=== PATIENT | male | born 1950 | race Caucasian/White ===

== ENCOUNTER 2016-08-23 02:27 | Emergency (ER) | payer BC ==
[2016-08-23] MEDS ORDERED: Nitroglycerin TAB 0.4 MG* 0.4 MG TAB SL PRN (02:40)
[2016-08-23] MEDS ORDERED: Aspirin Low Dose CHEW TAB* 81 MG PO ONE (02:40)
[2016-08-23] MEDS ORDERED: Nitroglycerin TAB 0.4 MG* 0.4 MG TAB ONE (02:59)
[2016-08-23] MEDS ORDERED: Piperac/Tazob 3.375 gm in NS* 3.375 GM/100 ML BAG IVPB ONE (03:11)
[2016-08-23] MEDS ORDERED: Vancomycin(*) 1,000 MG in NS 0.9% 250 ML* 250 ML IVPB ONE (03:11)
[2016-08-23 03:14] LABS: Hematocrit 44 % (42-52); Hemoglobin 14.8 g/dl (14.0-18.0); Mean Corpuscular HGB Conc 34 g/dl (31-36); Mean Corpuscular Hemoglobin 30 pg (27-31); Mean Corpuscular Volume 88 fL (80-94); Mean Platelet Volume 8 um3 (7.4-10.4); Red Blood Count 4.96 10^6/ul (4.0-5.4); Red Cell Distribution Width 13 % (10.5-15); White Blood Count 6.1 10^3/ul (3.5-10.8)
[2016-08-23 03:23] LABS: BUN/Creatinine Ratio 26.4 (8-20); Calcium 9.1 mg/dL (8.6-10.3); EGFR African American 140.9 (>60); EGFR Non-African American 109.6 (>60); Magnesium 2.1 mg/dL (1.9-2.7); Total Bilirubin 0.4 mg/dL (0.2-1.0)
--- NOTE | 2016-08-23 06:30 | ED ---
Mohinder Damon SooYoung, scribed for Jonathan Hahn MD on 08/23/16 at 0244 . HPI Chest Pain - HPI Summary HPI Summary: A 66 y/o M presents to ED with c/o acute CP onset approx 0200 while pt was asleep. Pt took one nitro. Pain described as pressure. Pt rated pain at onset as 8 out of 10, and down to 3 out of [address] 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 PMHx: quadruple bypass in 2006, partial lung collapse 3x. - History of Current Complaint Chief Complaint: EDChestPainROMI Time Seen by Provider: 08/23/16 02:34 Hx Obtained From: Patient, Medical Records Onset/Duration: Started Hours Ago, Still Present Timing: Constant Initial Severity: Severe - rated as 8 out of 10 Current Severity: Mild Pain Intensity: 3 Pain Scale Used: 0-10 Numeric Chest Pain Radiates: Yes Chest Pain Radiates To:: Arm - L Character: Pressure/Squeezing - Allergy/Home Medications Allergies/Adverse Reactions: Allergies Allergy/AdvReac Type Severity Reaction Status Date / Time Morphine AdvReac Intermediate Altered Verified 05/08/16 10:52 Mental Status PMH/Surg Hx/FS Hx/Imm Hx Previously Healthy: No Endocrine/Hematology History: Denies: Hx Diabetes Cardiovascular History: Reports: Hx Angina, Hx Coronary Artery Disease, Hx Hypercholesterolemia, Hx Hypertension, Hx Myocardial Infarction Denies: Hx Pacemaker/ICD, Hx Valvular Heart Disease Respiratory History: Reports: Hx Asthma, Other Respiratory Problems/Disorders - ALLERGIES Denies: Hx Chronic Obstructive Pulmonary Disease (COPD) History: Denies: Hx Renal Disease Sensory History: Denies: Hx Hearing Aid Psychiatric History: Denies: Hx Panic Disorder - Surgical History Surgery Procedure, Year, and Place: 3 PARTIAL LUNG COLLAPSE SURGERY. QUADRUPLE BYPASS Infectious Disease History: Denies: Traveled Outside the [place] in Last 30 Days - Family History Known Family History: Positive: Cardiac Disease - Social History Occupation: Employed Full-time Lives: With Family Alcohol Use: Weekly Alcohol Amount: 3/wk Hx Substance Use: No Substance Use Type: Reports: None Hx Tobacco Use: Yes Smoking Status (MU): Former Smoker Type: Cigarettes Have You Smoked in the Last Year: No Review of Systems Negative: Fever Positive: Chest Pain All Other Systems Reviewed And Are Negative: Yes Physical Exam Triage Information Reviewed: Yes Vital Signs On Initial Exam: Initial Vitals Temp Pulse Resp BP Pulse Ox 97.5 F 92 18 155/84 97 08/23/16 02:32 08/23/16 02:32 08/23/16 02:32 08/23/16 02:32 08/23/16 02:32 Vital Signs Reviewed: Yes Appearance: Positive: Well-Appearing, No Pain Distress Skin: Positive: Warm Head/Face: Positive: Normal Head/Face Inspection Eyes: Positive: NIRU ENT: Positive: Hearing grossly normal Dental: Positive: Gross Decay/Caries @ Neck: Positive: Supple Respiratory/Lung Sounds: Positive: Clear to Auscultation, Breath Sounds Present Cardiovascular: Positive: RRR Abdomen Description: Positive: Nontender, Soft Bowel Sounds: Positive: Present Musculoskeletal: Positive: Strength/ROM Intact Neurological: Positive: Sensory/Motor Intact, Alert, Oriented to Person Place, Time Psychiatric: Positive: Affect/Mood Appropriate Diagnostics - Vital Signs Vital Signs Temp Pulse Resp BP Pulse Ox 08/23/16 02:32 97.5 F 92 18 155/84 97 - Laboratory Lab Results: Lab Results 08/23/16 08/23/16 08/23/16 Range/Units 02:55 02:55 02:55 WBC 6.1 (3.5-10.8) 10^3/ul RBC 4.96 (4.0-5.4) 10^6/ul Hgb 14.8 (14.0-18.0) g/dl Hct 44 (42-52) % MCV 88 (80-94) fL MCH 30 (27-31) pg MCHC 34 (31-36) g/dl RDW 13 (10.5-15) % Plt Count 227 (150-450) 10^3/ul MPV 8 (7.4-10.4) um3 Neut % (Auto) 45.9 (38-83) % Lymph % (Auto) 39.4 (25-47) % Mayes % (Auto) 9.4 H (1-9) % Eos % (Auto) 4.1 (0-6) % Baso % (Auto) 1.2 (0-2) % Absolute Neuts (auto) 2.8 (1.5-7.7) 10^3/ul Absolute Lymphs (auto) 2.4 (1.0-4.8) 10^3/ul Absolute Monos (auto) 0.6 (0-0.8) 10^3/ul Absolute Eos (auto) 0.3 (0-0.6) 10^3/ul Absolute Basos (auto) 0.1 (0-0.2) 10^3/ul Absolute Nucleated RBC 0 10^3/ul Nucleated RBC % 0.1 Sodium 133 (133-145) mmol/L Potassium 4.0 (3.5-5.0) mmol/L Chloride 100 L (101-111) mmol/L Carbon Dioxide 25 (22-32) mmol/L Anion Gap 8 (2-11) mmol/L BUN 19 (6-24) mg/dL Creatinine 0.72 (0.67-1.17) mg/dL Est GFR ( Amer) 140.9 (>60) Est GFR (Non-Af Amer) 109.6 (>60) BUN/Creatinine Ratio 26.4 H (8-20) Glucose 118 H (70-100) mg/dL Lactic Acid 1.7 (0.5-2.0) mmol/L Calcium 9.1 (8.6-10.3) mg/dL Magnesium 2.1 (1.9-2.7) mg/dL Total Bilirubin 0.40 (0.2-1.0) mg/dL AST 33 (13-39) U/L ALT 45 (7-52) U/L Alkaline Phosphatase 72 (34-104) U/L Troponin I 0.00 (<0.04) ng/mL Total Protein 7.0 (6.4-8.9) g/dL Albumin 4.0 (3.2-5.2) g/dL Globulin 3.0 (2-4) g/dL Albumin/Globulin Ratio 1.3 (1-3) 08/23/16 Range/Units 05:55 WBC (3.5-10.8) 10^3/ul RBC (4.0-5.4) 10^6/ul Hgb (14.0-18.0) g/dl Hct (42-52) % MCV (80-94) fL MCH (27-31) pg MCHC (31-36) g/dl RDW (10.5-15) % Plt Count (150-450) 10^3/ul MPV (7.4-10.4) um3 Neut % (Auto) (38-83) % Lymph % (Auto) (25-47) % Mayes % (Auto) (1-9) % Eos % (Auto) (0-6) % Baso % (Auto) (0-2) % Absolute Neuts (auto) (1.5-7.7) 10^3/ul Absolute Lymphs (auto) (1.0-4.8) 10^3/ul Absolute Monos (auto) (0-0.8) 10^3/ul Absolute Eos (auto) (0-0.6) 10^3/ul Absolute Basos (auto) (0-0.2) 10^3/ul Absolute Nucleated RBC 10^3/ul Nucleated RBC % Sodium (133-145) mmol/L Potassium (3.5-5.0) mmol/L Chloride (101-111) mmol/L Carbon Dioxide (22-32) mmol/L Anion Gap (2-11) mmol/L BUN (6-24) mg/dL Creatinine (0.67-1.17) mg/dL Est GFR ( Amer) (>60) Est GFR (Non-Af Amer) (>60) BUN/Creatinine Ratio (8-20) Glucose (70-100) mg/dL Lactic Acid (0.5-2.0) mmol/L Calcium (8.6-10.3) mg/dL Magnesium (1.9-2.7) mg/dL Total Bilirubin (0.2-1.0) mg/dL AST (13-39) U/L ALT (7-52) U/L Alkaline Phosphatase (34-104) U/L Troponin I 0.01 (<0.04) ng/mL Total Protein (6.4-8.9) g/dL Albumin (3.2-5.2) g/dL Globulin (2-4) g/dL Albumin/Globulin Ratio (1-3) Result Diagrams: 08/23/16 02:55 08/23/16 02:55 Lab Statement: Any lab studies that have been ordered have been reviewed, and results considered in the medical decision making process. - Radiology CXR Xray Interpretation: No Acute Changes Radiology Interpretation Completed By: ED Physician - EKG 1 EKG Rhythm: Sinus Rhythm EKG Interpretation: incomplete left bundle Re-Evaluation - Re-Evaluation First Eval Change: Improved - pain free, results d/w pt Chest Pain Course/Dx - Course Assessment/Plan: Pt is a 66 y/o M with sudden, acute CP onset 0200, waking pt from sleep. 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 Rated initial pain as 8 out of 10, has subsided to 3 out of 10 upon arrival. Pt given Nitro, aspirin, Vancomycin, Zosyn in ED. EKG is sinus rhythm with incomplete left bundle. Trop at 0255 is 0.00. CXR is normal. Trop at 0555 is 0.01. Will D/C pt home without meds. - Diagnoses Provider Diagnoses: Chest pain Discharge - Discharge Plan Condition: Stable Disposition: HOME Patient Education Materials: Chest Pain (ED) Referrals: Emily Medellin MD [Primary Care Provider] - Additional Instructions: Follow up with your primary care physician. Please return to the ED if you experience new or worsening symptoms. The documentation as recorded by the Mohinder cuello SooYoung accurately reflects the service I personally performed and the decisions made by me, Jonathan Hahn MD.
[2016-08-23 07:03] VITALS: BP 121/74
--- NOTE | 2016-08-23 07:47 | RAD ---
INDICATION: Chest pain COMPARISON: March 06, 2016 TECHNIQUE: PA and lateral dual-energy views were obtained. FINDINGS: Bones/Soft Tissues: There are no acute bony findings. There is prior CABG Cardiomediastinal: The cardiomediastinal silhouette is normal. Lungs: There are no infiltrates. There is mild hyperinflation. Pleura: There are no pleural effusions. There is mild biapical scarring. Other: None IMPRESSION: POSTOPERATIVE CHANGES. HYPERINFLATION. NO ACTIVE DISEASE.
== END 2016-08-23 07:04 | disposition home or self-care (01) ==
LOC: ED 02:27
DX: R07.9 Chest pain, unspecified (principal); Z87.891 Personal history of nicotine dependence
CPT/HCPCS: 36415; 71020; 80053; 83605; 83735; 84484; 85025; 93005; 99283; A9270-GY

== ENCOUNTER 2016-09-09 09:54 | Observation (INO) | payer BC ==
[2016-09-09] MEDS ORDERED: Aspirin Low Dose CHEW TAB* 81 MG PO ONE (10:03)
[2016-09-09] MEDS ORDERED: NS 0.9% 1000 ML* 1,000 ML IV ONE (10:03)
[2016-09-09] MEDS ORDERED: Ondansetron INJ* 2 MG/ML VIAL ONE (10:04)
[2016-09-09] MEDS ORDERED: Ondansetron INJ* 2 MG/ML VIAL IV ONE ×2 (10:06→10:07)
[2016-09-09 10:31] LABS: Hematocrit 45 % (42-52); Mean Corpuscular HGB Conc 33 g/dl (31-36); Mean Corpuscular Hemoglobin 29 pg (27-31); Mean Corpuscular Volume 89 fL (80-94); Mean Platelet Volume 8 um3 (7.4-10.4); Red Blood Count 5.09 10^6/ul (4.0-5.4); Red Cell Distribution Width 13 % (10.5-15); White Blood Count 6.8 10^3/ul (3.5-10.8)
--- NOTE | 2016-09-09 10:42 | RAD ---
Indication: Syncope. Single frontal view of the chest performed at 1010 hours was reviewed. Comparison is made with previous exam dated August 23, 2016. No mediastinal shift is noted. Heart is of normal size and configuration. Lung green appear clear. Patient is status post transsternal thoracotomy. Lung green appear hyperinflated. Right apical scarring is noted. IMPRESSION: NO ACTIVE CARDIOPULMONARY DISEASE IS NOTED.
[2016-09-09 10:46] LABS: Albumin 4.1 g/dL (3.2-5.2); BUN/Creatinine Ratio 21.3 (8-20); EGFR African American 134.4 (>60); EGFR Non-African American 104.5 (>60); Globulin 3.1 g/dL (2-4); Magnesium 2.1 mg/dL (1.9-2.7); Potassium 4.1 mmol/L (3.5-5.0); Total Bilirubin 0.5 mg/dL (0.2-1.0); Total Protein 7.2 g/dL (6.4-8.9)
[2016-09-09 11:37] LABS: TSH (Thyroid Stimulating Horm) 0.1 mcIU/mL (0.34-5.60)
[2016-09-09] MEDS ORDERED: Iohexol 350* (CONTRAST) 500 ML MDV IV ONE (12:01)
--- NOTE | 2016-09-09 12:58 | RAD ---
Indication: Vertigo. CT of the brain was performed without IV contrast. Ventricular structures are midline. No midline shift is noted. The extraction spaces are unremarkable. There is no evidence of intracranial mass or hemorrhage. No other high or low density lesions are identified. Mastoid air cells and paranasal sinuses demonstrates mucosal thickening of the ethmoid air cells and right maxillary sinus and left maxillary sinus. IMPRESSION: No intracranial mass or hemorrhage is identified. Mucosal thickening right maxillary sinus and ethmoid air cells.
--- NOTE | 2016-09-09 13:04 | RAD ---
Indication: Vertigo. Contrast: Administered 79.8 ml of OMNIPAQUE 350 mgi/ml CTA of the neck and head was performed after IV contrast administration. Coronal and sagittal reconstructed images were obtained. The origins of the great vessels demonstrates a common origin of the innominate artery and left common carotid artery. The common carotid arteries otherwise are normal bilaterally. Minimal calcific plaque is noted at the origins of both internal carotid arteries likely a less than 50%. No evidence of carotid artery dissection is noted. The vertebral arteries are normal in caliber. No evidence of vertebral artery dissection is noted. The intracranial vessels demonstrates intracranial carotid arteries demonstrates atherosclerosis. Anterior and middle cerebral arteries are unremarkable. No a residual dilatation or branch occlusion is noted. The branches of the middle cerebral artery are grossly unremarkable. The basilar artery and posterior cerebral arteries are unremarkable. No aneurysmal dilatation is noted. The orbits are otherwise unremarkable. Soft tissue of the neck demonstrates normal parotid glands and salivary glands with scattered lymph nodes. The inferior thyroid lobes are unremarkable. The lung apices are unremarkable. IMPRESSION: CTA OF THE NECK DEMONSTRATES MINIMAL CALCIFIC PLAQUE AT THE ORIGINS OF BOTH INTERNAL CAROTID ARTERIES. CTA OF THE HEAD DEMONSTRATES NO BRANCH OCCLUSION OR ANEURYSMAL DILATATION OF THE [place]. NO EVIDENCE OF VERTEBRAL ARTERY OR CAROTID ARTERY DISSECTION IS NOTED.
[2016-09-09] MEDS ORDERED: Albuterol HFA INHALER* 8 gm MDI INH PRN (13:14)
[2016-09-09] MEDS: Enoxaparin(*) 40 MG/0.4 ML SYR SUBCUT SCH (14:01)
[2016-09-09] MEDS: Meclizine TAB* 12.5 MG PO SCH ×2 (14:02→22:11)
[2016-09-09] MEDS: Ondansetron INJ* 2 MG/ML VIAL IV SCH ×3 (14:03→22:11)
[2016-09-09] MEDS: Ascorbic Acid TAB* 500 MG PO SCH (14:03)
[2016-09-09] MEDS: Clopidogrel TAB* 75 MG PO SCH (14:03)
[2016-09-09] MEDS: Metoprolol Succinate XL TAB* 25 MG PO SCH (14:03)
[2016-09-09] MEDS ORDERED: Cholecalciferol TAB* 1000 UNITS PO SCH (18:00)
[2016-09-09] MEDS ORDERED: Atorvastatin* 40 MG TAB PO SCH (18:00)
[2016-09-09] MEDS: Mometasone/Formoter 100/5 MDI INH SCH (20:02)
--- NOTE | 2016-09-09 22:37 | HP ---
HISTORY AND PHYSICAL: DATE OF ADMISSION: 09/09/16 PRIMARY CARE PHYSICIAN: Emily Medellin MD CHIEF COMPLAINT: Dizziness. HISTORY OF PRESENT ILLNESS: Mr. Cage is a 66-year-old male with a past medical history of hypertension, hyperlipidemia, peripheral artery disease, COPD , CAD, status post CABG, and hypothyroidism, who presents to the hospital with an episode of dizziness and nausea this morning. The patient states he was in his usual state of health and has been doing well since a recent right lower extremity balloon angioplasty by IR on 09/07/16. This morning he was sitting on the side of his bed, working on a stencil sign, he laid back on his bed to stretch and then when he sat up he states everything started "swirling." He stated it looked like the room was spinning. He suddenly became nauseous and clammy and had an episode of vomiting. Shortly after this, he ran to the bathroom to have a bowel movement, yelled for his who called 911. The patient states the symptoms resolved after 2 to 3 minutes. He denies any preceding chest pain or shortness of breath. Denies headache. Did not loose consciousness. He has had no history of this in the past. He states he has had good p.o. intake lately. Denies any fevers, chills, URI symptoms or abdominal pain. He has not had any foot pain, swelling or bruising. No diarrhea, constipation, dysuria, melena, hematuria or hematochezia. Denies any focal weakness. Here in the emergency department, he again was laying down and when he was sat up, he felt lightheaded. As per his , he did not lose consciousness. He was a bit disoriented, but states this episode was different from the room spinning sensation he was feeling at home. Due to these symptoms , hospitalist service was called to consider the patient for admission to the hospital. PAST MEDICAL HISTORY: Hypertension, hyperlipidemia, peripheral artery disease, COPD, CAD, status post CABG, and hypothyroidism. PAST SURGICAL HISTORY: Quadruple bypass 2008, recent balloon angioplasty, history of chest tubes and what sounds like possible VATS. ALLERGY: To MORPHINE. FAMILY HISTORY: Significant for a brother with CAD and father with CAD. SOCIAL HISTORY: The patient was a 30-pack year smoker, quit in 1996. 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 Denies any illicit drug use. REVIEW OF SYSTEMS: A 12-point review of systems is negative, except for that noted in the HPI. PHYSICAL EXAMINATION GENERAL: The patient is a middle-aged male, lying in bed, seemed a bit stiff, but in no acute distress. VITAL SIGNS: On admission, temperature 97.5, heart rate of 85, respiratory rate of 17, O2 saturation 92% on room air, and blood pressure 136/86. HEENT: Pupils are equal, round, and reactive to light and accommodation. Anicteric sclerae. Moist mucous membranes. LUNGS: Clear to auscultation bilaterally. No wheezes, rales, or rhonchi. CARDIOVASCULAR: Regular rate and rhythm. S1, S2 present. No murmurs, rubs, or gallops. ABDOMEN: Soft, nontender, and nondistended. Bowel sounds positive. EXTREMITIES: No cyanosis, clubbing, or edema. NEURO: The patient is alert and oriented x3. No focal neurological deficits. The patient with noted nystagmus and recurrence of symptoms with Ronal-Hallpike maneuver with the head rotated to the right. When rotated to the left, noted lightheadedness when sitting back up. SKIN: Warm, dry, and well perfused. DIAGNOSTIC STUDIES/LAB DATA: White blood cells 6.8, hematocrit of 45, and platelets of 213. INR 0.95. Sodium 133, potassium 4.1, chloride 101, carbon dioxide 25, BUN of 16, creatinine 0.75, glucose 134, and lactic acid 1.5. LFTs are within normal limits. Troponin 0.00. TSH is 0.10. Chest x-ray personally reviewed, shows no acute disease. EKG personally reviewed shows normal sinus rhythm, no ischemic changes, and no changes from previous EKG. CT of the brain shows no intracranial mass or hemorrhage, mucosal thickening of the right maxillary sinus and ethmoid air cells. CTA of the head and neck shows minimal calcific plaque at the origins of both internal carotid arteries, no branch occlusion or aneurysmal dilatation at the [place], no evidence of vertebral artery or carotid artery dissection. ASSESSMENT AND PLAN: Pre-syncope, possibly vertigo in a 66-year-old male with past medical history of hypertension, hyperlipidemia, peripheral arterial disease, chronic obstructive pulmonary disease, coronary artery disease, status post CABG, and hypothyroidism. 1. Dizziness and lightheadedness: History and exam are somewhat consistent both with vertigo and orthostatic symptoms. The patient certainly had provocation of his symptoms with Ronal-Hallpike. We will start him on scheduled meclizine to see if there is any improvement. We will monitor the patient on telemetry. We will check orthostatic vital signs. We will also trend the patient's troponins. We will hold his home Norvasc and ramipril for now, but we will continue metoprolol. CT and CTA H/N show no significant findings. Will get an MRI to r/o CVA. 2. Peripheral artery disease: Continue home aspirin and Plavix. 3. Coronary artery disease: Continue aspirin, Plavix, statins, and beta- fatou; as noted above, holding Norvasc and ramipril. 4. Hypothyroidism: TSH is low at 0.10. We will decrease the patient's Synthroid from 150 mcg to 125 mcg by mouth daily. 5. Chronic obstructive pulmonary disease: Lungs appear clear currently. The patient was placed on oxygen in the ED, but I think this could probably be weaned off. We will continue Dulera while hospitalized and p.r.n. albuterol. 6. DVT prophylaxis: Lovenox subcu. 7. Code status: The patient is full code. The patient's surrogate healthcare proxy is his , Diann Cage, cell phone is [phone]. TIME SPENT: Total time spent on this admission was 45 minutes, with over the half the time spent [id number] with the patient in counseling and coordinating care. CC: Emily Medellin MD * [id number]/CPS #: [id number] RUBEN
[2016-09-10] MEDS: Ondansetron INJ* 2 MG/ML VIAL IV SCH ×4 (03:05→14:27)
[2016-09-10 03:36] LABS: Urine Bilirubin Negative (Negative); Urine Glucose Negative (Negative); Urine Nitrite Negative (Negative)
[2016-09-10] MEDS: Meclizine TAB* 12.5 MG PO SCH ×2 (05:26→13:38)
[2016-09-10] MEDS ORDERED: Levothyroxine TAB* 125 MCG TAB PO SCH (06:00)
[2016-09-10] MEDS ORDERED: Aspirin EC Low Dose* 81 MG TAB.EC PO SCH (09:00)
[2016-09-10 09:01] VITALS: BP 149/87
--- NOTE | 2016-09-10 09:01 | PN ---
Subjective Date of Service: 09/10/16 Interval History: Patient seen this morning. Says he has had some mild episodes of light- headedness when standing but not as bad as yesterday and no further episodes of the room spinning sensation that brought him in. Has been eating well, has not been ambulating much. Family History: Unchanged from Admission Social History: Unchanged from Admission Past Medical History: Unchanged from Admission Objective Active Medications: Albuterol (Ventolin Hfa Inhaler*) 2 puff INH Q4HR PRN PRN Reason: SOB/WHEEZING Ascorbic Acid (Vitamin C Tab*) 500 mg PO DAILY [facility] Last Admin: 09/09/16 14:03 Dose: 500 mg Aspirin (Aspirin Ec Low Dose*) 81 mg PO DAILY [facility] Atorvastatin Calcium (Lipitor*) 40 mg PO QPM [facility] PRN Reason: Protocol Last Admin: 09/09/16 17:34 Dose: 40 mg Cholecalciferol (Vitamin D Tab*) 1,000 units PO QPM [facility] Last Admin: 09/09/16 17:34 Dose: 1,000 units Clopidogrel Bisulfate (Plavix Tab*) 75 mg PO DAILY [facility] Last Admin: 09/09/16 14:03 Dose: 75 mg Enoxaparin Sodium (Lovenox(*)) 40 mg SUBCUT Q24H [facility] Last Admin: 09/09/16 14:01 Dose: 40 mg Levothyroxine Sodium (Synthroid Tab*) 125 mcg PO 0600 [facility] Last Admin: 09/10/16 05:26 Dose: 125 mcg Meclizine HCl (Antivert Tab*) 25 mg PO Q8HR [facility] Last Admin: 09/10/16 05:26 Dose: 25 mg Metoprolol Succinate (Toprol Xl Tab*) 25 mg PO DAILY [facility] Last Admin: 09/09/16 14:03 Dose: 25 mg Mometasone Furoate/Formoterol Fumar (Dulera 100/5 Mdi*) 2 puff INH BID [facility] Last Admin: 09/09/16 20:02 Dose: Not Given Ondansetron HCl (Zofran Inj*) 4 mg IV Q4H [facility] Last Admin: 09/10/16 05:27 Dose: 4 mg Vital Signs 09/09/16 09/09/16 09/09/16 12:00 12:59 13:00 Temperature Pulse Rate 70 83 85 Respiratory 17 16 16 Rate Blood Pressure 124/72 141/89 (mmHg) O2 Sat by Pulse 93 96 95 Oximetry 09/10/16 09/10/16 09/10/16 04:27 04:28 07:28 Temperature 99.2 F Pulse Rate 77 82 71 Respiratory 18 Rate Blood Pressure 130/85 132/88 131/76 (mmHg) O2 Sat by Pulse 94 Oximetry Oxygen Devices in Use Now: None Appearance: Middle-aged, M, laying in bed in NAD Eyes: No Scleral Icterus Ears/Nose/Mouth/Throat: Mucous Membranes Moist Neck: NL Appearance and Movements; NL JVP Respiratory: Symmetrical Chest Expansion and Respiratory Effort, Clear to Auscultation Cardiovascular: NL Sounds; No Murmurs; No JVD, RRR Abdominal: NL Sounds; No Tenderness; No Distention Lymphatic: No Cervical Adenopathy Extremities: No Edema Skin: No Rash or Ulcers Neurological: Alert and Oriented x 3, NL Muscle Strength and Tone Result Diagrams: 09/09/16 10:07 09/09/16 10:07 Additional Lab and Data: Lab Results 09/09/16 09/09/16 09/09/16 Range/Units 10:07 10:07 10:07 WBC 6.8 (3.5-10.8) 10^3/ul RBC 5.09 (4.0-5.4) 10^6/ul Hgb 15.0 (14.0-18.0) g/dl Hct 45 (42-52) % MCV 89 (80-94) fL MCH 29 (27-31) pg MCHC 33 (31-36) g/dl RDW 13 (10.5-15) % Plt Count 213 (150-450) 10^3/ul MPV 8 (7.4-10.4) um3 Neut % (Auto) 57.7 (38-83) % Lymph % (Auto) 29.0 (25-47) % Richardson % (Auto) 9.1 H (1-9) % Eos % (Auto) 3.2 (0-6) % Baso % (Auto) 1.0 (0-2) % Absolute Neuts (auto) 3.9 (1.5-7.7) 10^3/ul Absolute Lymphs (auto) 2.0 (1.0-4.8) 10^3/ul Absolute Monos (auto) 0.6 (0-0.8) 10^3/ul Absolute Eos (auto) 0.2 (0-0.6) 10^3/ul Absolute Basos (auto) 0.1 (0-0.2) 10^3/ul Absolute Nucleated RBC 0.01 10^3/ul Nucleated RBC % 0.1 INR (Anticoag Therapy) 0.95 (0.89-1.11) APTT 21.3 L (26.0-36.3) seconds Sodium 133 (133-145) mmol/L Potassium 4.1 (3.5-5.0) mmol/L Chloride 101 (101-111) mmol/L Carbon Dioxide 25 (22-32) mmol/L Anion Gap 7 (2-11) mmol/L BUN 16 (6-24) mg/dL Creatinine 0.75 (0.67-1.17) mg/dL Est GFR ( Amer) 134.4 (>60) Est GFR (Non-Af Amer) 104.5 (>60) BUN/Creatinine Ratio 21.3 H (8-20) Glucose 134 H (70-100) mg/dL Lactic Acid (0.5-2.0) mmol/L Calcium 9.0 (8.6-10.3) mg/dL Magnesium 2.1 (1.9-2.7) mg/dL Total Bilirubin 0.50 (0.2-1.0) mg/dL AST 25 (13-39) U/L ALT 42 (7-52) U/L Alkaline Phosphatase 68 (34-104) U/L Troponin I 0.00 (<0.04) ng/mL B-Natriuretic Peptide ( - 100) pg/mL Total Protein 7.2 (6.4-8.9) g/dL Albumin 4.1 (3.2-5.2) g/dL Globulin 3.1 (2-4) g/dL Albumin/Globulin Ratio 1.3 (1-3) TSH Pending 09/09/16 09/09/16 Range/Units 10:07 10:07 WBC (3.5-10.8) 10^3/ul RBC (4.0-5.4) 10^6/ul Hgb (14.0-18.0) g/dl Hct (42-52) % MCV (80-94) fL MCH (27-31) pg MCHC (31-36) g/dl RDW (10.5-15) % Plt Count (150-450) 10^3/ul MPV (7.4-10.4) um3 Neut % (Auto) (38-83) % Lymph % (Auto) (25-47) % Richardson % (Auto) (1-9) % Eos % (Auto) (0-6) % Baso % (Auto) (0-2) % Absolute Neuts (auto) (1.5-7.7) 10^3/ul Absolute Lymphs (auto) (1.0-4.8) 10^3/ul Absolute Monos (auto) (0-0.8) 10^3/ul Absolute Eos (auto) (0-0.6) 10^3/ul Absolute Basos (auto) (0-0.2) 10^3/ul Absolute Nucleated RBC 10^3/ul Nucleated RBC % INR (Anticoag Therapy) (0.89-1.11) APTT (26.0-36.3) seconds Sodium (133-145) mmol/L Potassium (3.5-5.0) mmol/L Chloride (101-111) mmol/L Carbon Dioxide (22-32) mmol/L Anion Gap (2-11) mmol/L BUN (6-24) mg/dL Creatinine (0.67-1.17) mg/dL Est GFR ( Amer) (>60) Est GFR (Non-Af Amer) (>60) BUN/Creatinine Ratio (8-20) Glucose (70-100) mg/dL Lactic Acid 1.5 (0.5-2.0) mmol/L Calcium (8.6-10.3) mg/dL Magnesium (1.9-2.7) mg/dL Total Bilirubin (0.2-1.0) mg/dL AST (13-39) U/L ALT (7-52) U/L Alkaline Phosphatase (34-104) U/L Troponin I (<0.04) ng/mL B-Natriuretic Peptide 33 ( - 100) pg/mL Total Protein (6.4-8.9) g/dL Albumin (3.2-5.2) g/dL Globulin (2-4) g/dL Albumin/Globulin Ratio (1-3) TSH Assess/Plan/Problems-Billing Assessment: Dizziness, presyncope in a 66 yo M with hx of HTN, HLD, PAD, COPD, CAD s/p CABG and hypothyroidism - Patient Problems (1) Pre-syncope Current Visit: Yes Comment: Dizziness. Symptoms seem c/w vertigo. No further symptoms so far this admission. Continue meclizine. Orthostatics negative overnight. Will get MRI to rule out CVA. Troponins negative. Hold Norvasc and Ramipril for now. (2) PAD (peripheral artery disease) Current Visit: Yes Comment: Continue ASA and Plavix (3) HTN (hypertension) Current Visit: Yes Comment: Continue metoprolol alone for now. (4) COPD (chronic obstructive pulmonary disease) Current Visit: Yes Comment: Dulera, prn albuterol (5) Hypothyroidism Current Visit: Yes Comment: Continue decreased synthroid dose. Recheck TFTs in 4-6 weeks. (6) DVT prophylaxis Current Visit: Yes Comment: Lovenox SQ Status and Disposition: Possible discharge home today pending MRI
[2016-09-10] MEDS: Ascorbic Acid TAB* 500 MG PO SCH (09:28)
[2016-09-10] MEDS: Metoprolol Succinate XL TAB* 25 MG PO SCH (09:29)
[2016-09-10] MEDS: Clopidogrel TAB* 75 MG PO SCH (09:29)
[2016-09-10] MEDS: Mometasone/Formoter 100/5 MDI INH SCH (10:04)
[2016-09-10] MEDS: Enoxaparin(*) 40 MG/0.4 ML SYR SUBCUT SCH (13:38)
--- NOTE | 2016-09-10 16:38 | RAD ---
INDICATION: Dizziness evaluate for CVA. COMPARISON: Comparison is made with a prior CT of the brain from September 09, 2016. TECHNIQUE: Sagittal T1, axial T1, T2, susceptibility, FLAIR and diffusion weighted images were obtained. FINDINGS: The ventricles, cisterns and sulci appear to be within normal limits. No significant focal abnormality or mass effect is seen. No areas of restricted diffusion are present. There is no evidence for infarct or hemorrhage. There is mucosal thickening in the maxillary and ethmoid sinuses which is [id number] in degree suggestive of chronic sinusitis. IMPRESSION: 1. NO EVIDENCE FOR ACUTE INTRACRANIAL ABNORMALITY. 2. FINDINGS SUGGESTIVE OF CHRONIC SINUSITIS.
--- NOTE | 2016-09-11 12:33 | DS ---
DISCHARGE SUMMARY: DATE OF ADMISSION: 09/09/16 DATE OF DISCHARGE: 09/10/16 PRIMARY CARE PHYSICIAN: Dr. Medellin. PRINCIPAL DISCHARGE DIAGNOSIS: Vertigo. SECONDARY DIAGNOSES: 1. Hypertension. 2. Hyperlipidemia. 3. Peripheral artery disease. 4. Chronic obstructive pulmonary disease. 5. Coronary artery disease, status post coronary artery bypass graft. 6. Hypothyroidism. DISCHARGE MEDICATION REGIMEN: 1. Synthroid 125 mcg by mouth daily, decreased from 150 mcg by mouth daily. 2. Meclizine 25 mg by mouth every 8 hours as needed for dizziness. 3. Co-enzyme Q 1 tablet by mouth daily. 4. Ferrous fumarate 1 tablet by mouth 2 times daily. 5. Toprol-XL 25 mg by mouth daily. 6. Multivitamin 1 tablet by mouth daily. 7. Nitroglycerin 1 tablet sublingual as needed for chest pain. 8. Ramipril 2.5 mg by mouth 2 times daily. 9. Rosuvastatin 20 mg by mouth nightly. 10. Albuterol 2 puffs inhaler every 4 hours as needed for shortness of breath or wheezing. 11. Vitamin C 500 mg by mouth daily. 12. Aspirin 81 mg by mouth daily. 13. Symbicort 2 puffs inhaled 2 times daily. 14. Vitamin D3 1000 units by mouth nightly. 15. Plavix 75 mg by mouth daily. Medications stopped this admission: Amlodipine. STUDIES DURING HOSPITALIZATION: Chest x-ray, impression: No active cardiopulmonary disease is noted. CT of the brain without contrast, impression: No intracranial mass or hemorrhage is identified. Mucosal thickening of the right maxillary sinus and ethmoid air cells. CTA of the head and neck, impression: Minimal calcific plaque at the origins of both internal carotid arteries. CTA of the head demonstrates no branch occlusion or aneurysmal dilatation in the [place]. No evidence of vertebral artery or carotid artery dissection is noted. MRI of the brain without contrast, impression: No evidence for acute intracranial findings chronic sinusitis. HISTORY OF PRESENT ILLNESS AND HOSPITAL SUMMARY: Please see my full history and physical for full details. Briefly, Mr. Cage is a 66-year-old male with past medical history as above, who presented to the hospital with a sensation of room was spinning after he sat up after lying down on the bed, the morning of admission. He had associated nausea, vomiting, and clamminess. The patient came to the emergency department and while there, had an episode of lightheadedness and decreased responsiveness. However, he did not syncopize. On my exam in the emergency department, the patient did have a positive Ronal- Hallpike with his head rotated to the right. It was felt like his symptoms were likely due to vertigo. He was started on meclizine. However, with the patient's significant peripheral artery disease and recent angioplasty, it was felt to be prudent to rule out posterior circulation stroke, which was done the following day with a negative MRI. The patient had some lightheadedness during the hospitalization; however, his orthostatics remained negative. Troponins also remained negative. The patient will be treated for vertigo and will be discharged home with p.r.n. meclizine. TIME SPENT: Total time spent on this discharge 40 minutes. This is a summary of the hospitalization, please see the full medical record for further details. CC: Dr. Medellin* [id number]/CPS #: [id number] RUBEN
== END 2016-09-10 18:35 | disposition home or self-care (01) ==
LOC: ED 09:54 → MEDTELE 11:46
PROVIDERS: ADMIT Hospitalist; ATTEND Hospitalist
DX: R42 Dizziness and giddiness (principal); R55 Syncope and collapse; I10 Essential (primary) hypertension; E78.5 Hyperlipidemia, unspecified; I73.9 Peripheral vascular disease, unspecified; J44.9 Chronic obstructive pulmonary disease, unspecified; I25.10 Atherosclerotic heart disease of native coronary artery without angina pectoris; Z95.1 Presence of aortocoronary bypass graft; E03.9 Hypothyroidism, unspecified; Z79.02 Long term (current) use of antithrombotics/antiplatelets; Z79.82 Long term (current) use of aspirin; Z79.899 Other long term (current) drug therapy; Z87.891 Personal history of nicotine dependence; I44.7 Left bundle-branch block, unspecified
CPT/HCPCS: 36415; 70450; 70496; 70498; 70551; 71010; 80053; 81003; 83605; 83735; 83880; 84443; 84484; 85025; 85610; 85730; 86803; 93005; 94640; 96361; 96372; 96374; 96376; 99285; A9270-GY; J1650; J2405; Q9967

== ENCOUNTER 2017-04-18 09:16 | Emergency (ER) | payer BC ==
[2017-04-18 10:18] LABS: Hematocrit 44 % (42-52); Hemoglobin 14.5 g/dl (14.0-18.0); Mean Corpuscular HGB Conc 33 g/dl (31-36); Mean Corpuscular Hemoglobin 31 pg (27-31); Mean Corpuscular Volume 92 fL (80-94); Mean Platelet Volume 7 um3 (7.4-10.4); Red Blood Count 4.76 10^6/ul (4.0-5.4); Red Cell Distribution Width 13 % (10.5-15); White Blood Count 4.6 10^3/ul (3.5-10.8)
[2017-04-18 10:33] LABS: Albumin 4.3 g/dL (3.2-5.2); Calcium 9.6 mg/dL (8.6-10.3); EGFR African American 108.9 (>60); EGFR Non-African American 84.7 (>60); Globulin 3.2 g/dL (2-4); Magnesium 2.2 mg/dL (1.9-2.7); Potassium 4.4 mmol/L (3.5-5.0); Total Bilirubin 0.5 mg/dL (0.2-1.0); Total Protein 7.5 g/dL (6.4-8.9)
[2017-04-18 10:34] LABS: Urine Bilirubin Negative (Negative); Urine Glucose Negative (Negative); Urine Nitrite Negative (Negative)
[2017-04-18 11:11] VITALS: BP 153/88
--- NOTE | 2017-04-18 11:29 | ED ---
Le Daomn Thomas, scribed for Ana Jacome MD on 04/18/17 at 0951 . Dizziness - HPI Summary HPI Summary: The pt is a 66 y/o M presenting to the ED c/o dizziness characterized as lightheadedness that began this morning and worsened in the last hour when the patient was at work. The dizziness is aggravated by standing up and moving. It is alleviated by nothing. The patient has treated the vertigo with an unspecified medication prior to arrival. He says that he was prescribed this medication for vertigo. Pt denies pain, SOB, vomiting, and nausea. The patient had an episode of vertigo in August of this year. He was admitted and a CTA Head and MRI Brain were obtained. The patients current symptoms are not similar to his symptoms that occurred during the vertigo in August. - History Of Current Complaint Chief Complaint: EDDizziness Stated Complaint: DIZZY Time Seen by Provider: 04/18/17 09:27 Hx Obtained From: Patient Onset/Duration: Still Present Timing: Constant Severity Currently: Moderate Character: Lightheaded Aggravating Factor(s): Other - Sitting up, movement Alleviating Factor(s): Nothing Associated Signs And Symptoms: Negative: Nausea, Vomiting, SOB, Other: - pain - Allergies/Home Medications Allergies/Adverse Reactions: Allergies Allergy/AdvReac Type Severity Reaction Status Date / Time Acetaminophen Allergy Unknown Verified 02/22/17 07:23 [From Pain Relief Extra Reaction Strength] Details Pyrilamine Allergy Unknown Verified 02/22/17 07:23 [From Pain Relief Extra Reaction Strength] Details Morphine AdvReac Intermediate Altered Verified 02/22/17 07:23 Mental Status PMH/Surg Hx/FS Hx/Imm Hx Previously Healthy: No Endocrine/Hematology History: Denies: Hx Diabetes Cardiovascular History: Reports: Hx Angina, Hx Coronary Artery Disease, Hx Hypercholesterolemia, Hx Hypertension, Hx Myocardial Infarction Denies: Hx Pacemaker/ICD, Hx Valvular Heart Disease Respiratory History: Reports: Hx Asthma, Hx Seasonal Allergies, Other Respiratory Problems/Disorders - Collapsed Lung x3 Denies: Hx Chronic Obstructive Pulmonary Disease (COPD) History: Denies: Hx Renal Disease Sensory History: Denies: Hx Contacts or Glasses, Hx Hearing Aid Opthamlomology History: Denies: Hx Contacts or Glasses Psychiatric History: Denies: Hx Panic Disorder - Surgical History Surgery Procedure, Year, and Place: 3 PARTIAL LUNG COLLAPSE SURGERY. QUADRUPLE BYPASS Infectious Disease History: No Infectious Disease History: Denies: Traveled Outside the [place] in Last 30 Days - Family History Known Family History: Positive: Cardiac Disease - Social History Lives: With Family Alcohol Use: Weekly Alcohol Amount: 1 x per week Hx Substance Use: No Substance Use Type: Reports: None Hx Tobacco Use: Yes Smoking Status (MU): Former Smoker Type: Cigarettes Have You Smoked in the Last Year: No Review of Systems Negative: Shortness Of Breath Negative: Vomiting, Nausea Negative: Other - pain Neurological: Other - Dizziness All Other Systems Reviewed And Are Negative: Yes Physical Exam - Summary Physical Exam Summary: VITAL SIGNS: Reviewed. GENERAL: Patient is a well-developed and nourished male who is lying comfortable in the stretcher. Patient is not in any acute respiratory distress. HEAD AND FACE: No signs of trauma. No ecchymosis, hematomas or skull depressions. No sinus tenderness. EYES: PERRLA, EOMI x 2, No injected conjunctiva, no nystagmus. EARS: Hearing grossly intact. Ear canals and tympanic membranes are within normal limits. MOUTH: Oropharynx within normal limits. NECK: Supple, trachea is midline, no adenopathy, no JVD, no carotid bruit, no c- spine tenderness, neck with full ROM. CHEST: Symmetric, no tenderness at palpation LUNGS: Clear to auscultation bilaterally. No wheezing or crackles. CVS: Regular rate and rhythm, S1 and S2 present, no murmurs or gallops appreciated. ABDOMEN: Soft, non-tender. No signs of distention. No rebound no guarding, and no masses palpated. Bowel sounds are normal. EXTREMITIES: There is trace bilateral lower extremity edema. FROM in all major joints, no cyanosis or clubbing. NEURO: Alert and oriented x 3. No acute neurological deficits. Speech is normal and follows commands. Normal coordination. SKIN: Dry and warm Triage Information Reviewed: Yes Vital Signs On Initial Exam: Initial Vitals Temp Pulse Resp BP Pulse Ox 98.6 F 88 16 170/92 98 04/18/17 09:23 04/18/17 09:23 04/18/17 09:23 04/18/17 09:23 04/18/17 09:23 Vital Signs Reviewed: Yes - [place] Coma Scale Coma Scale Total: 15 Diagnostics - Vital Signs Vital Signs Temp Pulse Resp BP Pulse Ox 04/18/17 09:24 85 18 96 04/18/17 09:23 98.6 F 88 16 170/92 98 - Laboratory Result Diagrams: 04/18/17 10:00 04/18/17 10:00 Lab Statement: Any lab studies that have been ordered have been reviewed, and results considered in the medical decision making process. - EKG 09:46 Cardiac Rate: NL EKG Interpretation: 81 BPM. Normal axis. Q-wave in inferior leads. Dizzy Course/Dx - Course Assessment/Plan: The patient is not orthostatic. He walked in the emergency room with minimal symptoms. The patients bloodwork and EKG are unremarkable. He is discharged home with follow up by his primary care provider. - Diagnoses Provider Diagnoses: Dizziness Discharge - Discharge Plan Condition: Stable Disposition: HOME Patient Education Materials: Dizziness (ED) Referrals: Emily Medellin MD [Primary Care Provider] - 4 Days Additional Instructions: Follow up with your primary care provider on Saturday, April 22. Return to the emergency department for any new or worsening symptoms. The documentation as recorded by the Le cuello Thomas accurately reflects the service I personally performed and the decisions made by Ayaz monge Abdul, MD.
== END 2017-04-18 11:46 | disposition home or self-care (01) ==
LOC: ED 09:16
DX: R42 Dizziness and giddiness (principal); Z87.891 Personal history of nicotine dependence
CPT/HCPCS: 36415; 80053; 81003; 83735; 85025; 85610; 85730; 93005; 99283

== ENCOUNTER 2018-09-18 07:58 | Observation (INO) | payer MEDICARE, BC ==
[2018-09-18] MEDS ORDERED: Albuterol/Ipratropium NEB.SOL* Albuterol 2.5 MG/Ipratropium 0.5 MG 3 ML INH ONE (08:13)
[2018-09-18] MEDS ORDERED: methylPREDNISolone 125 MG* 2 ML VIAL IV ONE (08:13)
--- NOTE | 2018-09-18 08:17 | ED ---
Shortness of Breath - HPI Summary HPI Summary: A 68 y/o M presents to ED with c/o worsening SOB onset yesterday. He states he needed to use his inhaler a few times, but his breathing worsened overnight. Associated sx: productive cough, CP associated with cough. Denies fever, chills , abd pain, n/v/d, pedal edema. - History of Current Complaint Chief Complaint: EDShortnessOfBreath Time Seen by Provider: 09/18/18 08:08 Hx Obtained From: Patient, Family/Local Company [employer] - present Onset/Duration: Gradual Onset, Lasting Days, Still Present Timing: Constant Current Severity: Moderate Dyspnea At: Rest Associated Signs & Symptoms: Cough (Productive), Chest Pain w/Cough - Allergy/Home Medications Allergies/Adverse Reactions: Allergies Allergy/AdvReac Type Severity Reaction Status Date / Time morphine Allergy Intermediate Altered Verified 09/18/18 09:43 Mental Status pyrilamine Allergy Unknown Verified 09/18/18 09:43 Reaction Details Home Medications: Home Medications Fluticasone NASAL SPRAY 50MCG* [Flonase NASAL SPRAY 50MCG*] 2 spray BOTH NARES DAILY 09/18/18 [History Confirmed 09/18/18] Meclizine TAB* [Antivert 12.5 TAB*] 12.5 mg PO TID PRN 09/18/18 [History Confirmed 09/18/18] PMH/Surg Hx/FS Hx/Imm Hx Previously Healthy: No Endocrine/Hematology History: Denies: Hx Diabetes Cardiovascular History: Reports: Hx Angina, Hx Coronary Artery Disease, Hx Hypercholesterolemia, Hx Hypertension, Hx Myocardial Infarction Denies: Hx Pacemaker/ICD, Hx Valvular Heart Disease Respiratory History: Reports: Hx Asthma, Hx Seasonal Allergies, Other Respiratory Problems/Disorders - Collapsed Lung x3 Denies: Hx Chronic Obstructive Pulmonary Disease (COPD) History: Denies: Hx Renal Disease Sensory History: Denies: Hx Contacts or Glasses, Hx Hearing Aid Opthamlomology History: Denies: Hx Contacts or Glasses Psychiatric History: Denies: Hx Panic Disorder - Surgical History Surgery Procedure, Year, and Place: 3 PARTIAL LUNG COLLAPSE SURGERY. QUADRUPLE BYPASS. 2 ANGIOPLASTY Infectious Disease History: No Infectious Disease History: Denies: Traveled Outside the [place] in Last 30 Days - Family History Known Family History: Positive: Cardiac Disease - Social History Occupation: Retired Lives: With Family Alcohol Use: Weekly Alcohol Amount: 1 x per week Hx Substance Use: No Substance Use Type: Reports: None Hx Tobacco Use: Yes Smoking Status (MU): Former Smoker Type: Cigarettes Have You Smoked in the Last Year: No Review of Systems Negative: Fever, Chills Positive: Chest Pain - associated with cough Positive: Shortness Of Breath, Cough - productive Negative: Abdominal Pain, Vomiting, Diarrhea, Nausea Negative: Edema All Other Systems Reviewed And Are Negative: Yes Physical Exam - Summary Physical Exam Summary: VITAL SIGNS: Reviewed. GENERAL: Patient is a well-developed and nourished MALE who is lying comfortable in the stretcher. Patient is not in any acute respiratory distress. HEAD AND FACE: No signs of trauma. No ecchymosis, hematomas or skull depressions. No sinus tenderness. EYES: PERRLA, EOMI x 2, No injected conjunctiva, no nystagmus. EARS: Hearing grossly intact. Ear canals and tympanic membranes are within normal limits. MOUTH: Oropharynx within normal limits. NECK: Supple, trachea is midline, no adenopathy, no JVD, no carotid bruit, no c- spine tenderness, neck with full ROM. CHEST: Symmetric, no tenderness at palpation LUNGS: Diffuse wheezing, decreased breath sounds CVS: Regular rate and rhythm, S1 and S2 present, no murmurs or gallops appreciated. ABDOMEN: Soft, non-tender. No signs of distention. No rebound, no guarding, and no masses palpated. Bowel sounds are normal. EXTREMITIES: FROM in all major joints, no edema, no cyanosis or clubbing. NEURO: Alert and oriented x 3. No acute neurological deficits. Speech is normal and follows commands. SKIN: Dry and warm Triage Information Reviewed: Yes Vital Signs On Initial Exam: Initial Vitals Temp Pulse Resp BP Pulse Ox 99.2 F 95 22 149/92 93 09/18/18 08:01 09/18/18 08:01 09/18/18 08:01 09/18/18 08:01 09/18/18 08:01 Vital Signs Reviewed: Yes Diagnostics - Vital Signs Vital Signs Temp Pulse Resp BP Pulse Ox 09/18/18 08:01 99.2 F 95 22 149/92 93 - Laboratory Result Diagrams: 09/19/18 05:24 09/19/18 05:24 Lab Statement: Any lab studies that have been ordered have been reviewed, and results considered in the medical decision making process. - Radiology CXR Radiology Interpretation Completed By: Radiologist Summary of Radiographic Findings: IMPRESSION: Findings consistent with COPD, no evidence for acute disease. ED provider has reviewed this report. - EKG 0833 Cardiac Rate: NL - 81 bpm EKG Rhythm: Sinus Rhythm EKG Comparison: No Significant Change - from EKG on 04/18/17. Summary of EKG Findings: No ST elevation, normal axis. 0934 Cardiac Rate: Tachycardia - 129 bpm EKG Rhythm: Atrial Fibrillation - at 129 bpm EKG Comparison: Other - Chnaged from previous EKG on this date at 0833. 1052 Cardiac Rate: NL - 96 pm EKG Rhythm: Sinus Rhythm Ectopy: PVCs EKG Comparison: Other - Returned to NSR as compared with previous EKG today at 0934. Re-Evaluation - Re-Evaluation 1 Re-Evaluation Time: 09:44 Change: Improved Comment: Pt is feeling better. Course/Dx - Course Assessment/Plan: This patient is a 68-year-old male who presents to the emergency department with a chief complaint of shortness of breath. Patient has history of COPD. Blood test results are without any significant abnormality except for glucose 122, AST 49, AST 77, total CPK is 249. Influenza A and B are negative. CXR impression: Findings consistent with COPD. No evidence for acute disease. EKG shows a normal sinus rhythm w/o ST elevations. While the patient was in the ED after taking the DuoNebs, IV fluids and Solumedrol the patient developed tachycardia and the EKG shows atrial fibrillation with RVR. The patient was given Cardizem and the heart rate decreased to 90 bpm and the repeat EKG shows a normal sinus rhythm. I believe that the patient has a paroxysmal atrial fibrillation and the patient doesnt take any blood thinners. Therefore I discussed case with Dr. Pierce from the hospital services was accepted the patient for admission. - Diagnoses Provider Diagnoses: COPD exacerbation, Paroxysmal atrial fibrillation - Physician Notifications Discussed Care of Patient With: Leida Grady - hospitalist Time Discussed With Above Provider: 11:10 Instructed by Provider To: Admit As Inpatient - Critical Care Time Critical Care Time: 30-74 min - 30 mins CCT Discharge - Sign-Out/Discharge Documenting (check all that apply): Patient Departure - ADMIT Patient Received Moderate/Deep Sedation with Procedure: No - Discharge Plan Condition: Stable Disposition: ADMITTED TO [facility] - Billing Disposition and Condition Condition: STABLE Disposition: Admitted to [facility] - Attestation Statements Document Initiated by Scribe: Yes Documenting Scribe: Destiney Vines Provider For Whom Scribe is Documenting (Include Credential): Dr. Juwan Almonte MD Scribe Attestation: Destiney Damon, scribed for Dr. Juwan Almonte MD on 09/19/18 at 0716. Scribe Documentation Reviewed: Yes Provider Attestation: The documentation as recorded by the Destiney cuello accurately reflects the service I personally performed and the decisions made by me, Dr. Juwan Almonte MD Status of Scribe Document: Viewed
[2018-09-18 08:26] LABS: ABS Basophils 0 10^3/ul (0-0.2); ABS Eosinophils 0.5 10^3/ul (0-0.6); ABS Lymphocytes 1.3 10^3/ul (1.0-4.8); ABS Monocytes 0.7 10^3/ul (0-0.8); ABS Neutrophils 2.8 10^3/ul (1.5-7.7); ABS Nucleated RBC 0 10^3/ul; Hematocrit 44 % (42-52); Lymphocyte % 24.6 %; Mean Corpuscular HGB Conc 34 g/dL (31-36); Mean Corpuscular Hemoglobin 31 pg (27-31); Mean Corpuscular Volume 91 fL (80-94); Mean Platelet Volume 7.7 fL (7.4-10.4); Nucleated Red Blood Cells % 0.1; Platelet Count 211 10^3/uL (150-450); Red Blood Count 4.83 10^6 /uL (4.18-5.48); Red Cell Distribution Width 14 % (10.5-15); White Blood Count 5.4 10^3/uL (3.5-10.8)
[2018-09-18 08:43] LABS: Albumin 4.5 g/dL (3.2-5.2); Albumin/Globulin Ratio 1.5 (1-3); BUN/Creatinine Ratio 20.7 (8-20); C Reactive Protein 5.16 mg/L (<8.01); Calcium 9.5 mg/dL (8.6-10.3); EGFR African American 99.3 (>60); EGFR Non-African American 82.1 (>60); Potassium 4.4 mmol/L (3.5-5.0); Total Bilirubin 0.6 mg/dL (0.2-1.0); Total Protein 7.5 g/dL (6.4-8.9)
[2018-09-18 08:44] LABS: Troponin I 0.01 ng/mL (<0.04)
[2018-09-18 08:47] LABS: CKMB ng/mL 3.5 ng/mL (0.6-6.3)
[2018-09-18 09:32] LABS: Influenza A Molecular NEGATIVE (Negative); Influenza B Molecular NEGATIVE (Negative)
[2018-09-18] MEDS ORDERED: Diltiazem IV push/loading dose 5 MG/ML 5 ML vial (25 mg) IV SLOW PU ONE (09:42)
[2018-09-18] MEDS ORDERED: NS 0.9% 1000 ML** 1,000 ML IV ONE (09:42)
[2018-09-18 11:50] LABS: TSH (Thyroid Stimulating Horm) 2.6 mcIU/mL (0.34-5.60)
[2018-09-18] MEDS ORDERED: Acetaminophen TAB* 325 MG PO PRN (12:49)
[2018-09-18] MEDS ORDERED: Benzonatate CAP* 100 MG PO PRN (12:49)
[2018-09-18] MEDS ORDERED: Ondansetron INJ* 2 MG/ML VIAL IV PRN (12:49)
[2018-09-18] MEDS ORDERED: Albuterol 2.5 MG/3 ML NEB.SOL* (0.083%) INH PRN (12:49)
[2018-09-18] MEDS ORDERED: Nitroglycerin TAB 0.4 MG* 0.4 MG TAB SL PRN (12:52)
[2018-09-18] MEDS ORDERED: Azelastine 0.15% NASAL(NF) 30 ML BTL BOTH NARES PRN (12:52)
[2018-09-18] MEDS ORDERED: clonazePAM TAB(*) 0.5 MG PO PRN (12:52)
[2018-09-18] MEDS ORDERED: Torsemide TAB* 20 MG PO PRN (12:52)
[2018-09-18] MEDS ORDERED: Meclizine TAB* 12.5 MG PO PRN (12:52)
[2018-09-18] MEDS ORDERED: Spiriva Inhaler DEVICE* 1 EACH DEVICE INH SCH (13:00)
[2018-09-18] MEDS ORDERED: DOXYcycline IV* 100 MG in NS 0.9% 250 ML* 250 ML IVPB ONE (13:30)
[2018-09-18] MEDS ORDERED: Perflutren Lipid Microsphere* 3 ML VIAL ONE (13:44)
[2018-09-18 14:42] LABS: Urine Appearance Cloudy; Urine Bilirubin Negative (Negative); Urine Blood Negative (Negative); Urine Color Yellow; Urine Glucose Negative (Negative); Urine Ketones Negative (Negative); Urine Nitrite Negative (Negative); Urine Protein Negative (Negative); Urine Specific Gravity 1.017 (1.010-1.030); Urine Urobilinogen Negative (Negative)
[2018-09-18] MEDS: Albuterol/Ipratropium NEB.SOL* Albuterol 2.5 MG/Ipratropium 0.5 MG 3 ML INH SCH ×3 (14:57→23:38)
[2018-09-18] MEDS ORDERED: Torsemide TAB 10 MG PO PRN (15:00)
[2018-09-18] MEDS: Metoprolol Succinate XL TAB* 50 MG PO SCH ×2 (15:58→21:09)
--- NOTE | 2018-09-18 16:10 | ECHO ---
*[facility]* [place] [address] Fax #: [phone] Transthoracic Echocardiogram Patient: Stage, Height: 74 in / 188 Darci Telles cm : 1950 Weight: 224.5 lb / Study Date: 09/18/2018 102.1 kg Age: 68 BP: 108 / 69 Gender: M BMI/BSA: 28.9 kg/m^2 HR: 100 bpm / 2.28 m^2 *Help Desk Intern: * Karla Torres [facility] *Referring Physician: * Edson Finch *Reading Physician: * Giovanny Morataya MD Indications: Abnormal EKG. History: PMH: Myocardial infarction. Risk factors: Former tobacco use. Hypertension. Dyslipidemia. Labs, prior tests, procedures, and surgery: Coronary artery bypass grafting. Conclusions Summary: 1. Left ventricle: Systolic function is normal. The estimated ejection fraction is 55-60%. Wall motion is normal; there are no regional wall motion abnormalities. Doppler parameters are consistent with abnormal left ventricular relaxation (grade 1 diastolic dysfunction). 2. Normal cardiac chamber sizes. 3. Functionally benign heart valves. 4. Aorta: The aortic root is mildly dilated. 5. Ascending aorta: The ascending aorta is mildly dilated. 6. Since the prior transthoracic echocardiogram completed 02/27/17, there appears to be little change. Study data: Transthoracic echocardiogram. Procedure: Transthoracic echocardiography was performed. Image quality was fair. The study was technically limited due to poor acoustic window availability. Intravenous contrast (Definity, 3 mls) was administered. By Fercho Mann RN. Complete 2D, spectral Doppler, and color flow Doppler. Location: Emergency department. Patient status: Inpatient. Patient room number: ED-19. Rhythm: Tachycardia. Findings Left ventricle: The cavity size is normal. Wall thickness is mildly increased. Systolic function is normal. The estimated ejection fraction is 55-60%. Wall motion is normal; there are no regional wall motion abnormalities. Intermittent distal apico-septal paradoxical wall motion noted consistent postoperative septum. Doppler parameters are consistent with abnormal left ventricular relaxation (grade 1 diastolic dysfunction). Right ventricle: Not well visualized. The cavity size is normal. Systolic function is normal. The tricuspid jet envelope definition is inadequate for estimation of RV systolic pressure. There are no indirect findings (abnormal RV volume or geometry, altered pulmonary flow velocity profile, or leftward septal displacement) which would suggest moderate or severe pulmonary hypertension. Ventricular septum: Ventricular septal wall motion has a postoperative appearance. Left atrium: The atrium is normal in size. Right atrium: The atrium is normal in size. Mitral valve: The annulus is calcified. The leaflets are mildly thickened. There is trivial regurgitation. The peak diastolic gradient is 2.4 mm Hg. Aortic valve: Unable to ascertain number of valve leaflets. The leaflets are mildly thickened. There is no evidence of stenosis. There is no significant regurgitation. The ratio of LVOT to aortic valve peak velocity is 0.63. The ratio of LVOT to aortic valve mean velocity is 0.69. The mean systolic gradient is 6.0 mm Hg. The peak systolic gradient is 10.0 mm Hg. Tricuspid valve: The leaflets are normal thickness. There is trivial regurgitation. Unable to reliably estimate the pulmonary artery systolic pressure. Pulmonic valve: Not well visualized. The leaflets are normal thickness. There is no evidence of stenosis. There is trivial regurgitation. The peak systolic gradient is 4.0 mm Hg. Aorta: Ascending aorta: The ascending aorta is mildly dilated. Aortic arch: The aortic arch is appears normal. The aortic root is mildly dilated. Pericardium: A prominent pericardial fat pad is present. There is no pericardial effusion. Pulmonary arteries: Not well visualized. Systemic veins: Inferior vena cava: The vessel is normal in size. The respirophasic diameter changes are in the normal range (>= 50%). Measurements Left ventricle Value Ref Left atrium continued Value Ref VENTURA, LAX 4.4 cm 4.2 - 5.8 Vol/bsa, ES, 1-p 23 ml/m^2 12 - 37 ESD, LAX 3.0 cm 2.5 - 4.0 A4C FS, LAX 33 % 25 - 43 Vol/bsa, ES, A/L 30 ml/m^2 16 - 34 PW, ED, LAX (H) 1.2 cm 0.6 - 1.0 PW/ID, ED, LAX 0.26 --------- Right atrium Value Ref VENTURA 4.4 cm 4.2 - 5.8 SI dim, ES 5.0 cm 3.4 - ESD 3.0 cm 2.5 - 4.0 5.3 FS 33 % 25 - 43 ML dim, ES, A4C 4.3 cm 2.6 - PW, ED (H) 1.2 cm 0.6 - 1.0 4.4 EF 62 % 52 - 72 SI dim/bsa, ES, 2.2 cm/m^2 1.8 - Mass 184 g 96 - 200 A4C 3.0 Mass/bsa 81 g/m^2 50 - 102 Mass/ht 97.89 g/m --------- Aortic valve Value Ref Mass/ht^2.7 33.48 g/m^2.7 --------- Ema diam, ED 2.1 cm -------- E', lat ema, TDI 12.6 cm/sec >=10.0 Peak v, S 1.62 m/sec - ------- E/e', lat ema, 6 --------- Mean v, S 1.11 m/sec ---- ---- TDI VTI, S 28.7 cm -------- E', med ema, TDI 9.6 cm/sec >=7.0 Mean grad, S 6.0 mm Hg - ------- E/e', med ema, 8 --------- Peak grad, S 10.0 mm Hg ---- ---- TDI LVOT/AV, Vpeak 0.63 -------- E', avg, TDI 11.1 cm/sec --------- ratio E/e', avg, TDI 7 <=14 Mitral valve Value Ref LVOT Value Ref Peak E 0.77 m/sec -------- Peak gi, S 1.02 m/sec --------- Peak A 1.06 m/sec -------- Mean gi, S 0.76 m/sec --------- Decel time 197 ms -------- Mean grad, S 3 mm Hg --------- Peak grad, D 2.4 mm Hg -------- Peak E/A ratio 0.7 -------- Ventricular septum Value Ref IVS, ED, LAX (H) 1.2 cm 0.6 - 1.0 Aortic root Value Ref IVS, ED (H) 1.2 cm 0.6 - 1.0 Root diam 3.7 cm <4.3 Right ventricle Value Ref Ascending aorta Value Ref VENTURA, LAX 4.1 cm --------- AAo AP diam, S 3.5 cm -------- VENTURA minor ax, A4C (H) 5.4 cm 1.9 - 3.5 mid Aortic arch Value Ref Arch diam 2.7 cm -------- Left atrium Value Ref AP dim, ES (H) 4.30 cm 3.00 - Decending aorta Value Ref 4.00 Trisha peak gi 0.95 m/sec -------- ML dim, A4C 4.5 cm --------- SI dim, A4C 5.4 cm --------- Inferior vena cava Value Ref Diam 1.8 cm -------- Legend: (L) and (H) william values outside specified reference range. Prepared and electronically signed by Giovanny Morataya MD 09/18/2018 16:08
--- NOTE | 2018-09-18 16:40 | HP ---
CC: Dr. Emily Medellin * HISTORY AND PHYSICAL: DATE OF ADMISSION: 09/18/18 PRIMARY CARE PROVIDER: Dr. Emily Medellin. MY ATTENDING WHILE IN HOSPITAL: Dr. Leida Grady.* (DICTATED BY JACKIE BRADLEY) CHIEF COMPLAINT: Shortness of breath x12 hours. HISTORY OF PRESENT ILLNESS: Mr. Cage is a 68-year-old male with past medical history significant for COPD, hypertension, hyperlipidemia, CAD with an SC with a CABG in 2003 and history of 4 pneumothoraces, who presented to the emergency department after last night, he was feeling in his normal state of health, the patient had been helping his friend to cut wood for 3 days and was exposed to a large amount of wood dust and then begun to feel very short of breath and last night with very limited exercise tolerance. Patient normally does have limited exercise tolerance with shortness of breath after walking over 50 feet, but he feels that his main limit to his functional capacity is pain in hips, so it is difficult to tell what his true maximum activity level would be, however, patient does at this point is unable to walk more than several feet without getting severely short of breath. Patient has been coughing with intermittent production of green sputum. Patient denies fevers, chills or chest pain. Patient has a grandson, who had a self-resolving "stomach bug," but no exposure to anybody with presumed respiratory virus. Patient took his inhaler last night and this morning and it helped a little with his breathing, but did not help very much. Patient denies palpitations, presyncope, or dizziness. Patient does have a history of vertigo, which resolved with an [place] maneuver. The patient has not been on any recent antibiotics. Patient took Septra and it did not help. Patient had a tick removed from his right shoulder without any rash. By his , it is unknown how long the tick was on his body. Patient does have a history of Lyme disease. In the emergency department, patient was given several inhalers and then was found to be in rapid atrial fibrillation with a heart rate up to a max of 154. Patient initially did not need oxygen, but was placed on 2 L with oxygen saturation in the low 90s. Due to concern for COPD exacerbation and new-onset atrial fibrillation, we were asked to evaluate the patient for admission to the hospital. PAST MEDICAL HISTORY: Hypertension; hyperlipidemia; peripheral arterial disease ; COPD; coronary artery disease, status post SC; hypothyroidism; BPPV; pneumothorax x4; SUSI. PAST SURGICAL HISTORY: CABG x4 in 2003, VATS surgery for pneumothorax with several chest tubes, and angioplasty in the bilateral lower extremities for PAD. MEDICATIONS: 1. Guaifenesin 400 mg p.o. twice daily as needed. 2. Meclizine 12.5 mg p.o. t.i.d. as needed. 3. Albuterol inhaler 1 puff inhalation q.4 hours as needed. 4. Symbicort 80/4.5 mcg 1 puff inhalation b.i.d. 5. Aspirin 81 mg p.o. daily. 6. Azelastine spray 1 spray in both nares daily as needed. 7. Fluticasone nasal spray 1 spray in both nares daily as needed. 8. Vitamin C 500 mg p.o. daily. 9. CoQ10 of 200 mg p.o. daily. 10. Iron 325 mg p.o. b.i.d. 11. Vitamin D 1000 units p.o. daily. 12. Multivitamin 1 tablet p.o. daily. 13. Clonazepam 0.5 mg p.o. daily, which is used infrequently. 14. Synthroid 125 mcg p.o. daily. 15. Metoprolol succinate 25 mg p.o. b.i.d. 16. Rosuvastatin 40 mg p.o. daily. 17. Ramipril 5 mg p.o. b.i.d. ALLERGIES: The patient is allergic to MORPHINE and PYRILAMINE. FAMILY HISTORY: The patient's father of heart disease. The patient's mother of old age. The patient had a brother who in his 60s from an SC. The patient has a sister with heart disease and other health problems that are unknown. Another sister is healthy. SOCIAL HISTORY: Patient quit smoking 22 years ago, had approximately 30-pack- year history of smoking before that. Patient drinks occasional alcohol, particularly when he is bowling. Patient denies illicit drug use. 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 Patient is and has 1 child and took care of his grandchild. Patient lives with his and her name is Aleksandra and she is his surrogate decision maker. REVIEW OF SYSTEMS: A 14-point review of systems was reviewed and is negative except as above in the HPI. PHYSICAL EXAMINATION GENERAL: The patient is a 68-year-old male, who appears stated age and sitting comfortably in bed, in no acute distress. VITAL SIGNS: At the time of my evaluation, temperature 99.2, pulse rate 104, respiratory rate 22, oxygen saturation 91% on 2 L, blood pressure is 116/77. HEENT: Head: Normocephalic, atraumatic. Sclerae anicteric. No conjunctival injection. Nasal mucosa moist. Oral mucosa moist. No pharyngeal erythema, discharge, or exudate. NECK: Supple, nontender. No lymphadenopathy. No carotid bruits auscultated. No JVD. CARDIAC: Tachycardic. No clicks, murmurs, gallops, or rubs. Pulses are 2+ in dorsalis pedis, posterior tibialis and radial areas. Trace bilateral lower extremity edema noted. RESPIRATORY: Expiratory wheezes heard throughout. No rales. Good air exchange bilaterally. ABDOMEN: Soft, nontender, nondistended. Bowel sounds are present and normoactive in all 4 quadrants. No hepatosplenomegaly. No abdominal bruits auscultated. No hepatojugular reflux. GENITOURINARY: No suprapubic or CVA tenderness. SKIN: Clean, dry and intact. No rash. NEURO: Cranial nerves II through XII intact. No focal deficits. Alert and oriented x3. PSYCHIATRIC: Pleasant and cooperative. DIAGNOSTIC STUDIES/LABORATORY DATA: White blood cell count 5.4, hemoglobin 15.0, platelet count 211. APTT 30.9. Sodium 136, potassium 4.4, chloride 101, carbon dioxide 26, anion gap 9, BUN 19, creatinine 0.92, glucose 122, lactic acid 1.6, calcium 9.5, bilirubin 0.6, AST is 49, ALT is 77, alkaline phosphatase 75, creatine kinase is 349, CK-MB is 3.5, troponin I is 0.01. CRP is 5.16. BNP is 17. Protein is 7.5, albumin is 4.5, globulin is 3.0, TSH is 2.6. Influenza A and B negative. Studies: Chest x-ray read as findings consistent with COPD, no evidence for acute disease. Electrocardiogram on 09/18/18 read as normal sinus rhythm, no ST-segment elevation or depression, T-wave inversion in V5 and V6, incomplete right bundle- branch block pattern, QTc of 422, rate of 81. Repeat EKG shows PVCs, atrial fibrillation at a rate of 129, QTc of 422. No new ST-segment elevation or depression. Repeat EKG shows resumption of sinus rhythm, persistent PVCs. No other significant changes. ASSESSMENT AND PLAN: Impression: Mr. Cage is a 68-year-old male with past medical history significant for hypertension, hyperlipidemia, peripheral arterial disease, chronic obstructive pulmonary disease, and coronary artery disease, who presents to the emergency department with wheezing and severe shortness of breath with severely limited exercise tolerance x12 hours and was found to have new-onset atrial fibrillation in the emergency department and he is being admitted to the hospital for management of his chronic obstructive pulmonary disease and monitoring of his heart rate with institution of anticoagulation. 1. Chronic obstructive pulmonary disease exacerbation. The patient will be started on scheduled inhalers as well as as needed inhalers as well as oral steroids with a goal of 5 days of therapy if patient improves. The patient had no infiltrates on his chest x-ray. Patient was started on doxycycline for antiinflammatory effects. Patient has no signs of recurrent pneumothorax. No signs of pneumonia. Patient does not need full community-acquired pneumonia coverage. Patient will be continued on his Symbicort, but Spiriva will also be added with the recommendation to continue this at discharge given patient's persistent and worsening symptoms and new COPD exacerbation. 2. New-onset atrial fibrillation. The patient was found to have new-onset atrial fibrillation in the emergency department. This was after the patient was given inhalers and after patient not taking his metoprolol this morning, so the patient possibly has paroxysmal atrial fibrillation given his risk factors. Patient's CHADS2-VASc score is 4 indicating 4.8% risk of stroke per year. Patient's HAS-BLED score is 2. The risks and benefits of anticoagulation were discussed with the patient and he is in agreement with starting a NOAC. The patient was started on Xarelto 20 mg nightly. Patient's metoprolol succinate will be increased to 50 mg twice daily from his normal of 25 mg twice daily. 3. Hypertension. Patient is currently normotensive. Continue patient's home medications with the increase in metoprolol dose as above. 4. Hyperlipidemia. Patient is currently on high-dose statin therapy. Continue outpatient monitoring per routine. 5. Peripheral arterial disease. Patient has good peripheral pulses and history of bypass. Continue patient's aspirin. We will add Xarelto. Continue statin. 6. Coronary artery disease, status post bypass. Patient has a history of decreased ejection fraction during a nuclear stress test, though he does have wall hypokinesis. We will check an echocardiogram as patient is predisposed to low ejection fraction given his history of heart attack as well as possibly a tachycardia-induced cardiomyopathy with asymptomatic RVR here in the emergency department. 7. Obstructive sleep apnea. Continue patient's home CPAP. 8. Hypothyroidism. Patient's TSH is normal at 2. Continue patient's Synthroid. 9. Pneumothorax x4. Patient has no signs of pneumothorax at this time. 10. FEN: Patient will have a heart-healthy diet, caffeine okay. 11. DVT prophylaxis: Patient was started on Xarelto. 12. Disposition: Patient is admitted to observation. TIME SPENT: Approximately 60 minutes was spent on the admission of this patient , 30 of which was spent [id number] with the patient obtaining history and physical and discussing treatment plan. This plan was discussed with my attending, Dr. Leida Grady, and she is in agreement. JACKIE BRADLEY [id number]/CPS #: [id number] MTDD
[2018-09-18] MEDS ORDERED: Atorvastatin* 40 MG TAB PO SCH (18:00)
[2018-09-18] MEDS ORDERED: Rivaroxaban TAB(*) 20 MG TAB PO SCH (18:00)
[2018-09-18] MEDS ORDERED: Cholecalciferol TAB* 1000 UNITS PO SCH (18:00)
[2018-09-18] MEDS: Mometasone/Formoter 100/5 MDI INH SCH (19:52)
[2018-09-18] MEDS ORDERED: Metoprolol Succinate XL TAB* 25 MG PO SCH (21:00)
[2018-09-18] MEDS: Ferrous Sulfate TAB* 325 MG PO SCH (21:09)
[2018-09-18] MEDS: Ramipril CAP* 5 MG PO SCH (21:09)
[2018-09-18] MEDS: guaiFENesin ER TAB 600 MG PO SCH (21:09)
[2018-09-19] MEDS ORDERED: DOXYcycline IV* 100 MG in NS 0.9% 250 ML* 250 ML IVPB SCH (02:00)
[2018-09-19] MEDS: Albuterol/Ipratropium NEB.SOL* Albuterol 2.5 MG/Ipratropium 0.5 MG 3 ML INH SCH ×3 (03:24→07:21)
[2018-09-19] MEDS ORDERED: Levothyroxine TAB* 125 MCG TAB PO SCH (06:00)
[2018-09-19 06:13] LABS: ABS Lymphocytes 1.1 10^3/ul (1.0-4.8); ABS Monocytes 0.7 10^3/ul (0-0.8); ABS Neutrophils 4.2 10^3/ul (1.5-7.7); Hematocrit 39 % (42-52); Hemoglobin 13.1 g/dL (14.0-18.0); Lymphocyte % 18.6 %; Mean Corpuscular HGB Conc 33 g/dL (31-36); Mean Corpuscular Hemoglobin 30 pg (27-31); Mean Corpuscular Volume 91 fL (80-94); Platelet Count 205 10^3/uL (150-450); Red Blood Count 4.31 10^6 /uL (4.18-5.48); Red Cell Distribution Width 13 % (10.5-15); White Blood Count 5.9 10^3/uL (3.5-10.8)
[2018-09-19 06:29] LABS: BUN/Creatinine Ratio 21.7 (8-20); Calcium 9.1 mg/dL (8.6-10.3); EGFR African American 111.8 (>60); EGFR Non-African American 92.4 (>60); Potassium 4.3 mmol/L (3.5-5.0)
[2018-09-19] MEDS: Mometasone/Formoter 100/5 MDI INH SCH (07:24)
[2018-09-19] MEDS: Metoprolol Succinate XL TAB* 50 MG PO SCH (07:53)
[2018-09-19] MEDS: guaiFENesin ER TAB 600 MG PO SCH (07:53)
[2018-09-19] MEDS: Ramipril CAP* 5 MG PO SCH (07:54)
[2018-09-19] MEDS: Ferrous Sulfate TAB* 325 MG PO SCH (07:54)
[2018-09-19] MEDS ORDERED: Coenzyme Q10 (NF) ** ENTER STREGNTH IN LABEL DIRECTIONS PO SCH (09:00)
[2018-09-19] MEDS ORDERED: Fluticasone NASAL SPRAY 50MCG* 16 gm SPRAY BTL BOTH NARES SCH (09:00)
[2018-09-19] MEDS ORDERED: Tiotropium CAP.INH* CAP.INH/18 MCG (USE ORDER SET !) INH SCH (09:00)
[2018-09-19] MEDS ORDERED: Aspirin EC TAB* 81 MG TAB.EC PO SCH (09:00)
[2018-09-19] MEDS ORDERED: predniSONE TAB* 20 MG PO SCH (09:00)
[2018-09-19] MEDS ORDERED: Albuterol/Ipratropium NEB.SOL* Albuterol 2.5 MG/Ipratropium 0.5 MG 3 ML INH SCH (13:00)
[2018-09-19 15:54] VITALS: BP 131/67
--- NOTE | 2018-09-20 20:59 | DS ---
CC: Dr. Emily Medellin * DISCHARGE SUMMARY: DATE OF ADMISSION: 09/18/18 DATE OF DISCHARGE: 09/19/18 PRIMARY CARE PROVIDER: Dr. Emily Medellin. ATTENDING PHYSICIAN: Dr. Janet Antonio * (dictated by JACKIE Chaney). PRIMARY DIAGNOSES: 1. Chronic obstructive pulmonary disease exacerbation. 2. New-onset atrial fibrillation. SECONDARY DIAGNOSES: 1. Coronary artery disease, status post myocardial infarction. 2. Hypertension. 3. Hyperlipidemia. 4. Chronic obstructive pulmonary disease. 5. Peripheral artery disease. 6. Hypothyroidism. 7. Benign paroxysmal positional vertigo. 8. Obstructive sleep apnea. 9. History of pneumothorax x4. STUDIES WHILE IN THE HOSPITAL: Chest x-ray, 09/18/18, impression: Findings consistent with COPD. No evidence for acute disease. Electrocardiogram, 09/18/18: Atrial fibrillation, irregular atrial activity with ventricular tachycardia, repeat showed sinus tachycardia with PVCs. Transthoracic echocardiogram, 09/18/18, summary: Left ventricle systolic function is normal. The estimated ejection fraction is 55% to 60%. Wall motion is normal. There are no regional wall motion abnormalities. Doppler parameters are consistent with abnormal left ventricular relaxation (grade 1 diastolic dysfunction). Normal cardiac chamber sizes, functionally benign heart valves. Aorta: The aortic root is mildly dilated. Ascending aorta: The ascending aorta is mildly dilated. Since the prior transthoracic echocardiogram completed 02/27/17, there appears to be a little change. DISCHARGE MEDICATIONS: Home medications: 1. Meclizine 12.5 mg p.o. t.i.d. p.r.n. dizziness. 2. Fluticasone nasal spray 50 mcg 2 sprays to both nares daily. 3. Triamcinolone acetonide 2 sprays to both nares daily after azelastine. 4. Azelastine 0.15% 2 sprays to both nares b.i.d. p.r.n. congestion. 5. Torsemide 10 mg p.o. daily p.r.n. fluid retention. 6. Nitroglycerin 0.4 mg SL q.5 minutes p.r.n. chest pain. 7. Multivitamin/minerals 1 tab p.o. daily. 8. Albuterol HFA inhaler 2 puffs q.4 hours p.r.n. shortness of breath/wheeze. 9. Symbicort 80/4.5 one puff inhalation b.i.d. 10. Clonazepam 1 tab p.o. daily p.r.n. anxiety. 11. Rosuvastatin calcium 20 mg p.o. q.p.m. 12. Aspirin 81 mg 1 tab p.o. daily. 13. Ascorbic acid 1 tab p.o. daily. 14. Levothyroxine 125 mcg p.o. q.a.m. 15. Ferrous sulfate 325 mg p.o. b.i.d. 16. Coenzyme Q 1 tab p.o. daily. 17. Cholecalciferol 1000 units p.o. q.p.m. 18. Ramipril 2.5 mg 2 caps p.o. b.i.d. New home medications: 1. Benzonatate 100 mg p.o. b.i.d. p.r.n. cough. 2. Doxycycline 100 mg p.o. b.i.d. x8 doses starting tonight. 3. Metoprolol succinate XL 50 mg p.o. b.i.d. 4. Rivaroxaban 20 mg p.o. q.p.m. 5. Spiriva 1 cap inhalation daily. 6. Prednisone 60 mg p.o. daily x3 days, starting tomorrow. HISTORY OF PRESENT ILLNESS/HOSPITAL COURSE: Mr. Cage is a 68-year-old male with past medical history significant for COPD; hypertension; hyperlipidemia; coronary artery disease, status post CA, CABG in 2003; and history of pneumothoraces. He presented to the ER on 09/18/18 after shortness of breath and limited exercise tolerance x1 day. He notes coughing with green sputum production intermittently. He denies fevers, chills. It is also noted that the patient had a tick removed from the right shoulder area recently. It is unknown how long the tick was attached. There is no rash. In the ER, the patient was given inhalers. He was then found to be in atrial fibrillation with rapid ventricular response. The hospitalist team was asked to admit the patient. While in the hospital, the patient's COPD was treated with oral steroids and inhalers. Doxycycline was given for its anti-inflammatory effects as well as its coverage for Lyme disease due to the patient's recent tick exposure. He was continued on his home medication Symbicort. Spiriva was added at discharge as was albuterol inhalers. New-onset atrial fibrillation was treated with metoprolol 50 twice daily. The patient was previously on 25 mg twice daily. The patient's CHADS-VASc score was 5, HAS-BLED score was 2. A discussion was had about starting anticoagulation and the patient opted to start Xarelto 20 mg. This was started inpatient. An echocardiogram was ordered due to the patient's history of coronary artery disease as well as his tachycardia. This reveals normal systolic function, no wall motion abnormalities, and grade 1 diastolic dysfunction. At the time of discharge, the patient denies chest pain, abdominal pain, nausea, vomiting, diarrhea, constipation. He still continues to have a slightly productive cough and some wheezing, although he notes that this has decreased significantly. He also notes an improvement in his shortness of breath. Mr. Cage is stable for discharge. PHYSICAL EXAMINATION: Vital signs are temperature 97.7 oral, heart rate 79, respiratory rate 18, oxygen saturation 95% on room air, blood pressure 131/67. General: Mr. Cage is a well-developed, well-nourished 68-year-old white male, who is sitting up in bed. He appears to be comfortable. He is in no acute distress. HEENT: Pupils equally round and reactive to light. Extraocular movements intact. Sclerae without icterus. Hearing grossly intact. Oral mucous membranes are moist. There are no lesions. Pharynx is clear. Neck with full range of motion. Trachea at midline. Respiratory: Symmetrical chest expansion without use of accessory muscles. Diffuse wheezing throughout lungs. There are no rales or rhonchi. Cardiovascular: Regular rate and rhythm with S1, S2 present. There are no murmurs, rubs, or gallops. There is no JVD. Tele shows regular rate and rhythm. Abdomen: Bowel sounds in all quadrants. The abdomen is soft. There is no tenderness to palpation. There is no hepatosplenomegaly. Extremities: Skin is warm and smooth bilaterally. There is no edema, clubbing, or cyanosis. Radial and pedal pulses are palpable. Musculoskeletal: Full range of motion with no pain or deformities. Neuro: The patient is awake, alert, and oriented x3. He is able to move all of his extremities. He has a steady gait with no impairments. DISCHARGE PLAN: Mr. Cage will be discharged to home. ACTIVITY: As tolerated. DIET: Heart-healthy. EDUCATION: 1. Continue doxycycline b.i.d. x8 doses, starting tonight. 2. Continue rivaroxaban daily, starting tonight. 3. Continue prednisone daily x3 days, starting tomorrow. 4. Follow up with primary care provider in 4 to 7 days. 5. Return to the ER or nearest hospital if you experience any worsening of symptoms, shortness of breath, chest discomfort, high fevers, chills, night sweats, dizziness, lightheadedness, loss of consciousness, or any other worrisome signs or symptoms. This is a summarized report of a complex medical history and hospital stay. For further details, please see the entire medical record. TIME SPENT: Approximately 35 minutes was spent on this discharge; greater than half that time was spent [id number] with the patient discussing discharge plans and instructions. JACKIE DUFF [id number]/[facility] #: [id number] RUBEN
== END 2018-09-19 15:00 | disposition home or self-care (01) ==
LOC: ED 07:58 → MEDTELE 12:49
PROVIDERS: ADMIT Internal Medicine; ATTEND Internal Medicine
DX: J44.1 Chronic obstructive pulmonary disease with (acute) exacerbation (principal); I48.0 Paroxysmal atrial fibrillation; I25.10 Atherosclerotic heart disease of native coronary artery without angina pectoris; I10 Essential (primary) hypertension; E78.5 Hyperlipidemia, unspecified; I73.9 Peripheral vascular disease, unspecified; E03.9 Hypothyroidism, unspecified; H81.10 Benign paroxysmal vertigo, unspecified ear; G47.33 Obstructive sleep apnea (adult) (pediatric); R06.02 Shortness of breath; J44.9 Chronic obstructive pulmonary disease, unspecified; I25.2 Old myocardial infarction; Z88.6 Allergy status to analgesic agent; Z87.891 Personal history of nicotine dependence; Z87.09 Personal history of other diseases of the respiratory system; Z79.82 Long term (current) use of aspirin; R42 Dizziness and giddiness
CPT/HCPCS: 36415; 71046; 80048; 80053; 81003; 82550; 82553; 83605; 83735; 83880; 84443; 84484; 85025; 85730; 86140; 87040; 93005; 93306; 94640; 94660; 96365; 96375; 99285; A9270-GY; G0378; J2930; J7512